=== PATIENT | female | born 1965 | race Caucasian/White ===

== ENCOUNTER 2018-06-07 11:00 | Day surgery (SDC) | payer OTHER ==
[~2018-06-07] VITALS: Ht 157.5 cm; Wt 60.8 kg
[~2018-06-07 11:00] MED LIST: B COMPLEX1 EACH PO; CALCIUM500 MG PO; FISH OIL 1,0001 EAC3 PO; L-LYSINE500 M1 PO; LEVOTHYROXINE100 MCG PO; LORATADINE10 MG PO; MULTIVITAMINS1 EAC8 PO; PROAIR HFA8.5 GM INH
[2018-06-07] MEDS ORDERED: HYDROCODON-ACE1 EA10 PO (13:08)
--- NOTE | 2018-06-07 13:59 | NUR ---
06/07/18 1354 Araceli Soni 1311 PT TO PACU ON ROOM AIR AWAKE AND TALKING
--- NOTE | 2018-06-10 06:58 | OR ---
[facility] [address] [facility] [place], [place] [address] Signed DATE OF OPERATION: 06/07/2018 SURGEON: Bar Soni MD DATE OF PROCEDURE: 06/07/2018 PREOPERATIVE DIAGNOSIS: Trigger finger, right thumb. POSTOPERATIVE DIAGNOSIS: Trigger finger, right thumb. PROCEDURE PERFORMED: Right trigger thumb release. CAN TECHNICIAN: None. ANESTHESIA: [place] block. TOURNIQUET TIME: 20 minutes. BRIEF HISTORY: Ayse is a 52-year-old female with painful locking in her thumb. Risks and benefits of operative treatment discussed with her and she elected to proceed. DESCRIPTION OF PROCEDURE: Once consent was obtained, she was taken to the operating room. After adequate anesthesia, she was placed on operating room table. All downside pressure points well padded. The arm was prepped and draped in a standard sterile fashion. The skin was checked for anesthesia and a 1 cm incision was made through the skin at the thumb flexion crease. This was carefully carried through skin and subcutaneous tissue. Under direct loupe magnification, the soft tissue was cleared off the A1 silvia and under direct visualization, it was released. The thumb was moved and excellent motion of the tendon with no trapping was noted. The wound was copiously irrigated with antibiotic solution, closed with 3-0 nylon, dressed with bacitracin, Adaptic, 4 x 8, and gauze. Prior to the Electronically Signed By: BAR SONI MD 06/10/18 0658 PATIENT NAME: MOJGAN,AYSE L OPERATIVE REPORT DATE OF : 61 REPORT #: [id number] PHYSICIAN: BAR SONI MD PCP: TASNEEM SAMUELS REPORT IS CONFIDENTIAL AND NOT TO BE RELEASED WITHOUT AUTHORIZATION [address] [place] [address] Signed dressing, we did inject 4 mL plain 0.25% Marcaine. She tolerated the procedure well. All sponge, needle, and instrument counts were correct. Bar Soni MD BA/ALICIAL /[id number] cc: BARBIE Hoffman Copies: TASNEEM SAMUELS ~ Electronically Signed By: BAR SONI MD 06/10/18 0658 PATIENT NAME: AYSE ULRICH OPERATIVE REPORT DATE OF : 61 REPORT #: [id number] PHYSICIAN: BAR SONI MD PCP: TASNEEM SAMUELS REPORT IS CONFIDENTIAL AND NOT TO BE RELEASED WITHOUT AUTHORIZATION
== END 2018-06-07 13:45 | disposition home or self-care (01) ==
LOC: OPS 11:00 → DS 11:00 → OPS 12:00 → DS 12:00 → OPS 13:45
PROVIDERS: Specialist
PROC: 0LN70ZZ Release Right Hand Tendon, Open Approach (ICD-10-PCS; principal; 2018-06-07 12:00)
DX: M65.311 Trigger thumb, right thumb (principal); Z79.899 Other long term (current) drug therapy; Z87.891 Personal history of nicotine dependence
CPT/HCPCS: J0690; J1885; J2250; J2405; J2704; J7120

== ENCOUNTER 2020-11-11 07:46 | Day surgery (SDC) | payer OTHER ==
[~2020-11-11] VITALS: Ht 157.5 cm; Wt 59.1 kg
[~2020-11-11 07:46] MED LIST changes: +HYDROCODON-ACE1 EA10 PO
[2020-11-11] MEDS ORDERED: MACULAR HEALTH1 EACH PO (08:06)
[2020-11-11] MEDS ORDERED: SERTRALINE HCL50 MG PO (08:07)
[2020-11-11] MEDS ORDERED: CETIRIZINE HCL10 MG PO (08:07)
--- NOTE | 2020-11-11 09:41 | NUR ---
11/11/20 0941 Ilene Feldman 0922-PATIENT ARRIVED TO PACU ON 2L NC RR EVEN LAYING LEFT LATERAL. ABDOMEN SOFT. WASHCLOTH TO FOREHEAD. PATIENT DROWSY OPENING EYES. ENCOURAGED TO TAKE DEEP BREATHES. ENCOURAGED TO PASS GAS.
--- NOTE | 2020-11-11 17:01 | OR ---
[facility] [address] [place], [place] [address] Signed DATE OF OPERATION: 11/11/2020 SURGEON: Anita Crowe MD PREOPERATIVE DIAGNOSIS: Screening. POSTOPERATIVE DIAGNOSIS: Unremarkable colonoscopy. PROCEDURE: Colonoscopy without biopsy. ESTIMATED BLOOD LOSS: None. INDICATIONS: Ayse is a 55-year-old female asked to see me for her initial screening colonoscopy. She has no lower GI complaints. There is no family history of colon cancer or polyps. In the office, I gave her a pamphlet on colonoscopy. She understands the test quite well. Apparently, her has been through colonoscopy as well. We reviewed the written instructions for the bowel prep line by line. We also reviewed the need for IV conscious sedation. She had expressed understanding and wished to proceed. PROCEDURE NOTE: Ayse had explained to our preop nurse that she gets nauseated and therefore, we gave her 4 mg of Zofran and 6.25 mg of Phenergan. After this, she was taken in the endoscopy suite and placed in the left lateral decubitus position. She was given a total of 5 mg of Versed and 125 mcg of fentanyl to cover the case. A digital rectal exam was performed and this was unremarkable. The adult colonoscope was introduced and advanced under direct visualization of camera. Ayse has a somewhat long redundant colon. She little bit narrow, therefore, it took some extra sedation and abdominal compression in order to advance the scope. We had to roll her supine and then back in the left lateral decubitus position and eventually got the camera into the cecum itself. Her prep was quite excellent. We could easily see the appendiceal orifice and the ileocecal valve. The scope was slowly withdrawn. There was no pathology throughout the entire colon or rectum. Upon retroflexion of scope, there was no additional pathology noted above the anal canal. After this, the gas was suctioned out and the colonoscope removed. Ayse tolerated the procedure quite well. Electronically Signed By: ANITA CROWE MD 11/11/20 170 PATIENT NAME: AYSE ULRICH OPERATIVE REPORT DATE OF : 61 REPORT #: [id number] PHYSICIAN: ANITA CROWE MD PCP: LATHA SAMUELS REPORT IS CONFIDENTIAL AND NOT TO BE RELEASED WITHOUT AUTHORIZATION [address] [address] Signed RECOMMENDATIONS: Ayse can return in 10 years for a repeat colonoscopy. Anita Crowe MD ALB/MODL /[id number] cc: MD Latha Carey PA Copies: ANITA CROWE MD, LINDA PA ~ Electronically Signed By: ANITA CROWE MD 11/11/201700 PATIENT NAME: AYSE ULRICH OPERATIVE REPORT DATE OF : 61 REPORT #: [id number] PHYSICIAN: ANITA CROWE MD PCP: LATHA SAMUELS REPORT IS CONFIDENTIAL AND NOT TO BE RELEASED WITHOUT AUTHORIZATION
== END 2020-11-11 10:40 | disposition home or self-care (01) ==
LOC: DS 07:46 → OPS 07:46 → DS 09:00 → OPS 10:40
PROVIDERS: ATTEND Colon & Rectal Surgery
PROC: 0DJD8ZZ Inspection of Lower Intestinal Tract, Via Natural or Artificial Opening Endoscopic (ICD-10-PCS; principal; 2020-11-11 09:00)
DX: Z12.11 Encounter for screening for malignant neoplasm of colon (principal); Q43.8 Other specified congenital malformations of intestine; J45.991 Cough variant asthma; E03.9 Hypothyroidism, unspecified
CPT/HCPCS: 99153; G0500; J2250; J2405; J2550; J3010; J7121

== ENCOUNTER 2021-05-09 13:44 | Emergency (ER) | payer OTHER ==
[~2021-05-09] VITALS: Ht 157.5 cm; Wt 59.0 kg
[~2021-05-09 13:44] MED LIST changes: +CETIRIZINE HCL10 MG PO; +MACULAR HEALTH1 EACH PO; +SERTRALINE HCL50 MG PO
--- NOTE | 2021-05-10 12:37 | EKG ---
[facility] [address] [facility] [place] [address] Signed Sinus rhythm with sinus arrhythmia with frequent premature ventricular complexes Otherwise normal ECG No previous ECGs available Confirmed by BARBARA BARRETT MD ([id number]) on 05/10/2021 12:37:00 PM Electronically Signed By: BARBARA BARRETT MD 05/10/21 1237 PATIENT NAME: MOJGANCHAVO Electrocardiogram DATE OF : 61 PHYSICIAN: BARBARA BARRETT MD REPORT #: [id number] REPORT IS CONFIDENTIAL AND NOT TO BE RELEASED WITHOUT AUTHORIZATION
== END 2021-05-09 16:15 | disposition home or self-care (01) ==
LOC: ED 13:44
DX: I49.3 Ventricular premature depolarization (principal); Z79.899 Other long term (current) drug therapy
CPT/HCPCS: 36415; 71045; 80053; 83735; 84443; 84484; 85025; 93005; 93010; 99285-25

== ENCOUNTER 2021-08-17 18:34 | Emergency (ER) | payer OTHER ==
[~2021-08-17] VITALS: Ht 157.5 cm; Wt 59.0 kg
--- NOTE | 2021-08-18 06:28 | EKG ---
[facility] [address] [facility] [place], [place] [address] Signed Sinus rhythm with frequent premature ventricular complexes in a pattern of bigeminy Possible Anterior infarct , age undetermined Abnormal ECG When compared with ECG of 09-MAY-2021 13:47, No significant change was found Confirmed by OUMOU LEONARD MD ([id number]) on 08/18/2021 6:27:55 AM Electronically Signed By: OUMOU LEONARD MD 08/18/21 0628 PATIENT NAME: MOJGANCHAVO Electrocardiogram DATE OF : 61 PHYSICIAN: OUMOU LEONARD MD REPORT #: [id number] REPORT IS CONFIDENTIAL AND NOT TO BE RELEASED WITHOUT AUTHORIZATION
== END 2021-08-17 21:40 | disposition home or self-care (01) ==
LOC: ED 18:34
DX: E86.0 Dehydration (principal); E87.6 Hypokalemia; I49.3 Ventricular premature depolarization; Z79.899 Other long term (current) drug therapy
CPT/HCPCS: 36415; 71045; 80053; 81001; 83735; 84439; 84443; 84481; 84484; 85025; 87502; 93005; 93010; 96360; 96361; 99285-25; A9270; J7030; U0003